=== PATIENT | female | born 1985 | race Two or more races ===

== ENCOUNTER 2017-12-17 11:31 | Inpatient (IN) | payer OTHER ==
[~2017-12-17] VITALS: Ht 167.6 cm; Wt 76.7 kg
[2018-01-03] MEDS ORDERED: PRENATAL TABLE1 EAC3 PO (06:00)
[2018-01-03] MEDS ORDERED: FOLIC ACID0.4 MG PO (06:01)
== END 2018-01-05 13:40 | disposition home or self-care (01) | DRG 775 ==
LOC: LDR 01-03 05:32 → SURG-SUITE 01-03 13:46 → LDR 01-09 11:30
PROC: 10E0XZZ Delivery of Products of Conception, External Approach (ICD-10-PCS; principal; 2018-01-03)
PROC: 10907ZC Drainage of Amniotic Fluid, Therapeutic from Products of Conception, Via Natural or Artificial Opening (ICD-10-PCS; 2018-01-03)
PROC: 3E033VJ Introduction of Other Hormone into Peripheral Vein, Percutaneous Approach (ICD-10-PCS; 2018-01-03)
PROC: 4A1HXCZ Monitoring of Products of Conception, Cardiac Rate, External Approach (ICD-10-PCS; 2018-01-03)
DX: O80 Encounter for full-term uncomplicated delivery (principal); Z3A.39 39 weeks gestation of pregnancy; Z37.0 Single live birth